=== PATIENT | male | born 1960 | race Caucasian/White ===

== ENCOUNTER 2017-03-10 12:34 | Day surgery (SDC) | payer OTHER ==
[2017-03-10] MEDS ORDERED: FENTAnyl 50 MCG/ML VIAL (13:42)
[2017-03-10] MEDS ORDERED: MIDAZOLAM 1 MG/ML 2 ML INJ ×2 (13:43)
== END 2017-03-10 14:35 | disposition home or self-care (01) ==
LOC: GIL 12:34
DX: Z12.11 Encounter for screening for malignant neoplasm of colon (principal)
CPT/HCPCS: 45378